=== PATIENT | female | born 2005 | race Caucasian/White ===

== ENCOUNTER 2024-05-20 23:15 | Emergency (ER) | payer OTHER ==
[~2024-05-20] VITALS: Ht 167.6 cm; Wt 70.8 kg
[2024-05-20] MEDS ORDERED: KETOROLAC TROMETHAMINE INJ 30 MG/ML VIAL ONE (23:56)
[2024-05-20] MEDS ORDERED: dexaMETHasone SOD PHOSPHATE 1 ML ONE (23:56)
[2024-05-21] MEDS: dexaMETHasone SOD PHOSPHATE 10 MG/ML VIAL MC ONE (00:13)
[2024-05-21] MEDS: KETOROLAC TROMETHAMINE INJ 60 MG/2 ML VIAL IM ONE (00:13)
[2024-05-21 00:58] LABS: MONOTEST NEGATIVE (NEGATIVE)
[2024-05-21] MEDS ORDERED: KETO10TA2 PO (01:42)
[2024-05-21 01:51] VITALS: BP 116/65; TEMP 99.4; O2SAT 99
[2024-05-22] MEDS ORDERED: AMOX-430 PO (15:16)
== END 2024-05-21 01:52 | disposition home or self-care (01) ==
LOC: ER 23:19
DX: J02.8 Acute pharyngitis due to other specified organisms (principal)
CPT/HCPCS: 99283; 36415; 96372; 87070; 86308; 87880; J1100; J1885; 86403-TC

== ENCOUNTER 2024-05-22 12:14 | Emergency (ER) | payer OTHER ==
[~2024-05-22] VITALS: Ht 167.6 cm; Wt 70.3 kg
[~2024-05-22 12:14] MED LIST: KETO10TA2 PO
[2024-05-22 14:32] LABS: BASOPHILS # (AUTO) 0.1 K/uL (0.0-0.2); BASOPHILS % (AUTO) 0.4 % (0.0-2.0); EOSINOPHILS % (AUTO) 0.1 % (0.0-6.0); HEMATOCRIT 38 % (33-45); HEMOGLOBIN 12.3 g/dL (11.5-14.8); MEAN CORPUSCULAR HEMOGLOBIN 28 PG (26.0-33.0); MEAN CORPUSCULAR HGB CONC 33 g/dl (31.0-36.0); MEAN CORPUSCULAR VOLUME 84 fL (82-100); MONOCYTES % (AUTO) 5.4 % (2.0-12.0); NEUTROPHILS % (AUTO) 83.1 % (43.0-81.0); PLATELET COUNT (AUTO) 410 K/uL (150-450); RED BLOOD CELL COUNT(AUTO) 4.47 MIL/uL (4.0-5.2); RED CELL DISTRIBUTION WIDTH 13.8 % (11.5-15.0)
[2024-05-22 14:41] LABS: CALCIUM, SERUM 8.9 mg/dL (8.5-10.1); CREATININE 0.9 mg/dL (0.6-1.3); POTASSIUM 3.3 mmol/L (3.5-5.1)
[2024-05-22 14:44] LABS: PREGNANCY TEST URINE QUAL NEGATIVE (NEGATIVE)
[2024-05-22 14:46] LABS: ALBUMIN 3.6 g/dL (3.4-5.0); BILIRUBIN,DIRECT 0.1 mg/dL (0.0-0.2); BILIRUBIN,TOTAL 0.3 mg/dL (0.2-1.0); TOTAL PROTEIN, SERUM 8.2 g/dL (6.4-8.2)
[2024-05-22 14:49] LABS: LACTIC ACID 1.9 mmol/L (0.4-2.0)
[2024-05-22] MEDS ORDERED: KETOROLAC TROMETHAMINE 15 MG/ML VIAL ONE (14:50)
[2024-05-22] MEDS: KETOROLAC TROMETHAMINE 15 MG/ML VIAL IV ONE (14:50)
[2024-05-22] MEDS ORDERED: dexaMETHasone SOD PHOSPHATE 1 ML ONE (14:50)
[2024-05-22] MEDS ORDERED: PIPERACI/TAZO 3.375GM/D5W 50ML PB IV ONE (14:51)
[2024-05-22] MEDS: IV NS 0.9% 1,000 ML BAG IV ONE (14:54)
[2024-05-22] MEDS: dexaMETHasone SOD PHOSPHATE 10 MG/ML VIAL IV ONE (15:00)
[2024-05-22] MEDS: PIPERACILLIN /TAZOBACTAM 3.375 G in IV D5W 50 ML IV ONE (15:10)
[2024-05-22] MEDS ORDERED: IOHEXOL-300 100 ML VIAL IV ONE (15:14)
[2024-05-22] MEDS ORDERED: IV NS 0.9% 250 ML IV ONE (15:14)
[2024-05-22] MEDS ORDERED: CT SWABBABLE VALVE TRANS SET 1 EA INFUS.SET MC ONE (15:14)
[2024-05-22] MEDS ORDERED: AMOX-430 PO (15:16)
[2024-05-22] MEDS: ACETAMINOPHEN 325 MG TABLET PO ONE (15:38)
[2024-05-22 18:48] VITALS: BP 117/75; TEMP 101.6; O2SAT 97
== END 2024-05-22 18:49 | disposition left against medical advice (07) ==
LOC: ER 12:23
DX: J02.8 Acute pharyngitis due to other specified organisms (principal); R50.9 Fever, unspecified
CPT/HCPCS: 99285; 96365; 70491; 96375; 85025; 80048; 87040; 83605; 80076; 84703; 36415; J1100; J2543 ×2; J7060; J7030; J7050; A4223; Q9967; J1885